=== PATIENT | male | born 1990 | race Caucasian/White ===

== ENCOUNTER 2018-01-25 00:21 | Emergency (ER) | payer BC ==
[2018-01-25 00:57] LABS: Absolute Lymphocytes (CBC) 2.6 K/uL (0.7-4.9); Absolute Monocytes 0.8 K/uL (0.1-1.3); Absolute Neutrophil 4.7 K/uL (1.8-8.0); Basophils % 0.5 % (0-1.3); Eosinophils % 2.6 % (0-4.4); Hematocrit 43.7 % (39.6-49.0); Lymphocytes % 31.1 % (15.3-44.8); MCH 29.5 pg (27.0-35.0); MCV 85.9 fL (80-100); MPV 9.2 fL (7.6-11.3); Monocytes % 9.7 % (3.3-12.3); RBC Red Blood Cell Count 5.09 M/uL (4.33-5.43)
[2018-01-25 00:58] LABS: Protime INR 1.09
[2018-01-25] MEDS ORDERED: ASPIRIN 81 MG CHEWABLE TABLET ONE (01:00)
[2018-01-25] MEDS ORDERED: NA CHLORIDE 0.9% 1,000 ML ONE (01:00)
[2018-01-25] MEDS ORDERED: FAMOTIDINE 20 MG/2 ML VIAL IV ONE (01:00)
[2018-01-25 01:15] LABS: ALT/SGPT 64 U/L (12-78); AST/SGOT 26 U/L (15-37); Albumin 4.4 g/dL (3.4-5.0); Alkaline Phosphatase 59 U/L (45-117); BUN Blood Urea Nitrogen 15 mg/dL (7-18); Bicarbonate 30 mmol/L (21-32); Bilirubin Direct 0.1 mg/dL (0-0.2); Bilirubin Total 0.5 mg/dL (0.2-1.0); Glucose Level 96 mg/dL (74-106); Lipase 124 U/L (73-393); Magnesium 2.3 mg/dL (1.8-2.4); NT PRO-BNP 5 pg/mL (<125); Potassium 4.3 mmol/L (3.5-5.1); Protein, Total 8.4 g/dL (6.4-8.2); Sodium Level 138 mmol/L (136-145); Troponin (Emerg Dept Use Only) < 0.02 ng/mL (0.0-0.045)
[2018-01-25 02:40] LABS: Barbiturates NEGATIVE (NEGATIVE); Benzodiazepines NEGATIVE (NEGATIVE); Cocaine NEGATIVE (NEGATIVE); METHAMPHETAM NEGATIVE (NEGATIVE); Methadone NEGATIVE (NEGATIVE); Opiates NEGATIVE (NEGATIVE); Phencyclidine NEGATIVE (NEGATIVE); THC Cannibis NEGATIVE (NEGATIVE)
--- NOTE | 2018-01-25 03:08 | ER ---
Nurse's Notes [facility] Name: Esequiel Vera Age: 27 yrs Sex: Male : 1990 Arrival Date: 01/25/2018 Time: 00:26 Bed 7 Private MD: Jayant Irving Diagnosis: Chest pain, unspecified Presentation: 01/25 00:35 Presenting complaint: Patient states: Pt reports he has been having chest pain for two ea days, reports pain got worse today around 5 PM. Transition of care: patient was not received from another setting of care. Onset of symptoms was January 25, 2018. Risk Assessment: Do you want to hurt yourself or someone else? Patient reports no desire to harm self or others. Initial Sepsis Screen: Does the patient meet any 2 criteria? No. Patient's initial sepsis screen is negative. Does the patient have a suspected source of infection? No. Patient's initial sepsis screen is negative. Care prior to arrival: None. 00:35 Method Of Arrival: Ambulatory ea 00:35 Acuity: GIANFRANCO 3 ea Triage Assessment: 00:45 General: Appears in no apparent distress. Behavior is calm, cooperative, appropriate ea for age. Pain: Complains of pain in anterior aspect of left upper chest Pain does not radiate. Neuro: Level of Consciousness is awake, alert, obeys commands, Oriented to person, place, time, situation. Cardiovascular: Heart tones S1 S2 present Patient's skin is warm and dry. Respiratory: Airway is patent Respiratory effort is even, unlabored, Respiratory pattern is regular, symmetrical, Breath sounds are clear bilaterally. Derm: Skin is pink, warm \T\ dry. Musculoskeletal: Circulation, motion, and sensation intact. Historical: - Allergies: 00:45 No Known Allergies; ea - Home Meds: 00:45 None [Active]; ea - PMHx: 00:45 None; ea - PSHx: 00:45 None; ea - Immunization history:: Adult Immunizations up to date. - Social history:: Smoking status: Patient/guardian denies using tobacco, Patient uses alcohol, occasionally. - Ebola Screening: : No symptoms or risks identified at this time. - Family history:: not pertinent. Screenin:00 Abuse screen: Denies threats or abuse. Nutritional screening: No deficits noted. ea Tuberculosis screening: No symptoms or risk factors identified. Fall Risk IV access (20 points). Assessment: 01:02 Reassessment: see triage assessment. ea 01:07 General: Appears in no apparent distress. comfortable, Behavior is calm, cooperative, rr5 appropriate for age. Pain: Complains of pain in anterior aspect of left upper chest Pain does not radiate. Pain currently is 7 out of 10 on a pain scale. Quality of pain is described as aching, Pain began 2-3 days ago. Is intermittent. Neuro: Level of Consciousness is awake, alert, obeys commands, Oriented to person, place, time, situation, Appropriate for age. Cardiovascular: Reports chest pain, Capillary refill < 3 seconds Patient's skin is warm and dry. Respiratory: Airway is patent Respiratory effort is even, unlabored, Respiratory pattern is regular, symmetrical. GI: Abdomen is round. : No signs and/or symptoms were reported regarding the genitourinary system. EENT: No signs and/or symptoms were reported regarding the EENT system. Derm: Skin is intact, Skin is dry, Skin is pink, warm \T\ dry. Skin temperature is warm. Musculoskeletal: Capillary refill < 3 seconds, Range of motion: intact in all extremities. 01:34 Reassessment: Patient appears in no apparent distress at this time. Patient is alert, rr5 oriented x 3, equal unlabored respirations, skin warm/dry/pink. Patient states feeling better. Patient states symptoms have improved. 02:51 Reassessment: Patient appears in no apparent distress at this time. Patient is alert, rr5 oriented x 3, equal unlabored respirations, skin warm/dry/pink. Patient states feeling better. Patient states symptoms have improved. 03:20 Reassessment: Patient appears in no apparent distress at this time. Patient is alert, rr5 oriented x 3, equal unlabored respirations, skin warm/dry/pink. repeat troponin test. no complaints made. Patient states symptoms have improved. 04:15 Reassessment: Patient appears in no apparent distress at this time. Patient is alert, rr5 oriented x 3, equal unlabored respirations, skin warm/dry/pink. dr. may informed for the 2nd troponin result and discharged the patient. Vital Signs: 00:45 BP 136 / 88; Pulse 83; Resp 18; Temp 98.6; Pulse Ox 99% ; Weight 136.08 kg; Height 6 ea ft. (182.88 cm); Pain 8/10; 01:34 BP 123 / 73; Pulse 71; Resp 16; Pulse Ox 98% on R/A; rr5 02:00 BP 131 / 88; Pulse 68; Resp 18; Pulse Ox 98% ; ea 02:50 BP 123 / 79; Pulse 60; Resp 17; Pulse Ox 99% on R/A; Pain 0/10; rr5 04:10 BP 121 / 76; Pulse 61; Resp 17; Pulse Ox 99% on R/A; Pain 0/10; rr5 00:45 Body Mass Index 40.69 (136.08 kg, 182.88 cm) ea ED Course: 00:26 Patient arrived in ED. es 00:26 Jayant Irving MD is Private Physician. es 00:31 Domenico May MD is Attending Physician. adriane 00:44 Triage completed. ea 00:50 Inserted saline lock: 20 gauge in right antecubital area, using aseptic technique. ea Blood collected. 00:57 X-ray completed. Portable x-ray completed in exam room. Patient tolerated procedure sg4 well. 01:00 Arm band placed on right wrist. Patient placed in an exam room, on a stretcher, on ea cardiac cath tech, on pulse oximetry. 01:01 XRAY Chest (1 view) In Process Unspecified. EDMS 01:01 Patient has correct armband on for positive identification. Bed in low position. Call ea light in reach. Side rails up X2. vehicle monitor technician on. NIBP on. 01:02 Patient maintains SpO2 saturation greater than 95% on room air. ea 01:14 Krzysztof Winston RN is Primary Nurse. rr5 03:07 Jayant Irving MD is Referral Physician. adriane 03:07 Jose Luis Woodard MD is Referral Physician. adriane 04:10 No provider procedures requiring assistance completed. IV discontinued, bleeding rr5 controlled, Pressure dressing applied. Administered Medications: Discontinued: NS 0.9% 1000 ml IV at 125 ml/hr continuous 00:55 Drug: Pepcid 20 mg Route: IVP; Site: right antecubital; rr5 04:10 Follow up: Response: No adverse reaction rr5 01:00 Drug: Aspirin Chewable Tablet 324 mg Route: PO; rr5 04:47 Follow up: Response: No adverse reaction rr5 01:05 Drug: NS 0.9% 1000 ml Route: IV; Rate: 125 ml/hr; Site: right antecubital; rr5 04:10 Follow up: Response: No adverse reaction; IV Status: Order to discontinue infusion; IV rr5 Intake: 500ml ; patient is discharged Intake: 04:10 IV: 500ml; Total: 500ml. rr5 Outcome: 03:08 Discharge ordered by MD. forrest 04:10 Discharged to home ambulatory. rr5 04:10 Condition: stable 04:10 Discharge instructions given to patient, Instructed on discharge instructions, follow up and referral plans. medication usage, Demonstrated understanding of instructions, follow-up care, medications, Prescriptions given X 1. 04:48 Patient left the ED. rr5 Signatures: Dispatcher [employer] Domenico Yarbrough MD MD cha Salyer, Edna es Antunez, Elena, RN RN Aida Ashford [facility] Krzysztof Winston RN RN rr5
--- NOTE | 2018-01-25 03:08 | EDPHYS ---
Physician Documentation [facility] Name: Esequiel Vera Age: 27 yrs Sex: Male : 1990 Arrival Date: 01/25/2018 Time: 00:26 Bed 7 Private MD: Jayant Irving ED Physician Domenico May HPI: 01/25 00:48 This 27 yrs old Male presents to ER via Ambulatory with complaints of Chest adriane Pain. 00:48 The patient or guardian reports chest pain that is located primarily in the substernal adriane area. The pain radiates to the left arm. Associated signs and symptoms: The patient has no apparent associated signs or symptoms. The chest pain is described as a pressure. Duration: The patient or guardian reports a single episode, that is now resolved. Severity of pain: At its worst the pain was mild in the emergency department the pain has resolved. The patient has not experienced similar symptoms in the past. Historical: - Allergies: 00:45 No Known Allergies; ea - Home Meds: 00:45 None [Active]; ea - PMHx: 00:45 None; ea - PSHx: 00:45 None; ea - Immunization history:: Adult Immunizations up to date. - Social history:: Smoking status: Patient/guardian denies using tobacco, Patient uses alcohol, occasionally. - Ebola Screening: : No symptoms or risks identified at this time. - Family history:: not pertinent. ROS: 00:49 Constitutional: Negative for fever, chills, and weight loss, Eyes: Negative for injury, adriane pain, redness, and discharge, ENT: Negative for injury, pain, and discharge, Neck: Negative for injury, pain, and swelling, Respiratory: Negative for shortness of breath, cough, wheezing, and pleuritic chest pain, Abdomen/GI: Negative for abdominal pain, nausea, vomiting, diarrhea, and constipation, Back: Negative for injury and pain, : Negative for injury, bleeding, discharge, and swelling, MS/Extremity: Negative for injury and deformity, Skin: Negative for injury, rash, and discoloration, Neuro: Negative for headache, weakness, numbness, tingling, and seizure. 00:49 Cardiovascular: Positive for Exam: 00:49 Constitutional: This is a well developed, well nourished patient who is awake, alert, adriane and in no acute distress. Head/Face: Normocephalic, atraumatic. Eyes: Pupils equal round and reactive to light, extra-ocular motions intact. Lids and lashes normal. Conjunctiva and sclera are non-icteric and not injected. Cornea within normal limits. Periorbital areas with no swelling, redness, or edema. ENT: Nares patent. No nasal discharge, no septal abnormalities noted. Tympanic membranes are normal and external auditory canals are clear. Oropharynx with no redness, swelling, or masses, exudates, or evidence of obstruction, uvula midline. Mucous membranes moist. Neck: Trachea midline, no thyromegaly or masses palpated, and no cervical lymphadenopathy. Supple, full range of motion without nuchal rigidity, or vertebral point tenderness. No Meningismus. Chest/axilla: Normal chest wall appearance and motion. Nontender with no deformity. No lesions are appreciated. Cardiovascular: Regular rate and rhythm with a normal S1 and S2. No gallops, murmurs, or rubs. Normal PMI, no JVD. No pulse deficits. Respiratory: Lungs have equal breath sounds bilaterally, clear to auscultation and percussion. No rales, rhonchi or wheezes noted. No increased work of breathing, no retractions or nasal flaring. Abdomen/GI: Soft, non-tender, with normal bowel sounds. No distension or tympany. No guarding or rebound. No evidence of tenderness throughout. Back: No spinal tenderness. No costovertebral tenderness. Full range of motion. Male : Normal genitalia with no discharge or lesions. Skin: Warm, dry with normal turgor. Normal color with no rashes, no lesions, and no evidence of cellulitis. MS/ Extremity: Pulses equal, no cyanosis. Neurovascular intact. Full, normal range of motion. Neuro: Awake and alert, GCS 15, oriented to person, place, time, and situation. Cranial nerves II-XII grossly intact. Motor strength 5/5 in all extremities. Sensory grossly intact. Cerebellar exam normal. Normal gait. Psych: Awake, alert, with orientation to person, place and time. Behavior, mood, and affect are within normal limits. 00:50 Musculoskeletal/extremity: DVT Exam: No signs of deep vein thrombosis. no pain, no adriane swelling, no tenderness, negative Homans' sign noted on exam, no appreciated bluish discoloration, no erythema, no increased warmth. Vital Signs: 00:45 BP 136 / 88; Pulse 83; Resp 18; Temp 98.6; Pulse Ox 99% ; Weight 136.08 kg; Height 6 ea ft. (182.88 cm); Pain 8/10; 01:34 BP 123 / 73; Pulse 71; Resp 16; Pulse Ox 98% on R/A; rr5 02:00 BP 131 / 88; Pulse 68; Resp 18; Pulse Ox 98% ; ea 02:50 BP 123 / 79; Pulse 60; Resp 17; Pulse Ox 99% on R/A; Pain 0/10; rr5 04:10 BP 121 / 76; Pulse 61; Resp 17; Pulse Ox 99% on R/A; Pain 0/10; rr5 00:45 Body Mass Index 40.69 (136.08 kg, 182.88 cm) ea MDM: 00:31 Patient medically screened. adriane 00:50 Data reviewed: vital signs, nurses notes, lab test result(s), EKG, radiologic studies. [facility] 01/25 00:47 Order name: Basic Metabolic Panel; Complete Time: 02:57 [facility] 01/25 00:47 Order name: CBC with Diff; Complete Time: 02:57 [facility] 01/25 00:47 Order name: LFT's; Complete Time: 02:57 [facility] 01/25 00:47 Order name: Magnesium; Complete Time: 02:57 [facility] 01/25 00:47 Order name: NT PRO-BNP; Complete Time: 02:57 [facility] 01/25 00:47 Order name: PT-INR; Complete Time: 02:57 [facility] 01/25 00:47 Order name: Troponin (emerg Dept Use Only); Complete Time: 02:57 [facility] 01/25 00:47 Order name: XRAY Chest (1 view) [facility] 01/25 00:47 Order name: Lipase; Complete Time: 02:57 adriane 01/25 00:47 Order name: UDS; Complete Time: 02:57 adriane 01/25 01:05 Order name: D-Dimer; Complete Time: 02:57 EDMS 01/25 01:58 Order name: Urine Dipstick--Ancillary (enter results) ms 01/25 03:01 Order name: Troponin (emerg Dept Use Only): now; Complete Time: 04:17 adriane 01/25 00:47 Order name: EKG; Complete Time: 00:48 [facility] 01/25 00:47 Order name: Cardiac monitoring; Complete Time: 01:06 [facility] 01/25 00:47 Order name: EKG - Nurse/Tech; Complete Time: 01:14 [facility] 01/25 00:47 Order name: IV Saline Lock; Complete Time: 01:06 [facility] 01/25 00:47 Order name: Labs collected and sent; Complete Time: 01:06 [facility] 01/25 00:47 Order name: O2 Per Protocol; Complete Time: 01:06 [facility] 01/25 00:47 Order name: O2 Sat Monitoring; Complete Time: 01:06 [facility] 01/25 00:48 Order name: EKG; Complete Time: 00:49 [facility] 01/25 00:48 Order name: EKG - Nurse/Tech; Complete Time: 01:04 [facility] Administered Medications: Discontinued: NS 0.9% 1000 ml IV at 125 ml/hr continuous 00:55 Drug: Pepcid 20 mg Route: IVP; Site: right antecubital; rr5 04:10 Follow up: Response: No adverse reaction rr5 01:00 Drug: Aspirin Chewable Tablet 324 mg Route: PO; rr5 04:47 Follow up: Response: No adverse reaction rr5 01:05 Drug: NS 0.9% 1000 ml Route: IV; Rate: 125 ml/hr; Site: right antecubital; rr5 04:10 Follow up: Response: No adverse reaction; IV Status: Order to discontinue infusion; IV rr5 Intake: 500ml ; patient is discharged Disposition: 01/25/18 03:08 Discharged to Home. Impression: Chest pain, unspecified. - Condition is Stable. - Discharge Instructions: Nonspecific Chest Pain, Chest Wall Pain, Chest Wall Pain, [id number], Nonspecific Chest Pain, Cubc-[id number]-[id number], Aspirin and Your Heart. - Prescriptions for Pepcid 20 mg Oral Tablet - take 1 tablet by ORAL route every 12 hours for 10 days; 20 tablet. - Medication Reconciliation Form, Thank You Letter, Antibiotic Education, Prescription Opioid Use form. - Follow up: Jayant Irving; When: 2 - 3 days; Reason: Recheck today's complaints, Continuance of care, Re-evaluation by your physician. Follow up: Jose Luis Woodard; When: 2 - 3 days; Reason: Recheck today's complaints, Re-evaluation by your physician. - Problem is new. - Symptoms have improved. Signatures: Dispatcher [employer] [facility] Domenico May MD MD cha Antunez, Elena, RN Krzysztof Mcghee ea, LORENZA RN rr5 Corrections: (The following items were deleted from the chart) 01:05 01:01 D-DIMER+COAG.LAB.BRZ ordered. [facility] 04:48 03:08 01/25/2018 03:08 Discharged to Home. Impression: Chest pain, unspecified. rr5 Condition is Stable. Discharge Instructions: Nonspecific Chest Pain, Chest Wall Pain, Chest Wall Pain, [id number], Nonspecific Chest Pain, [id number], Aspirin and Your Heart. Prescriptions for Pepcid 20 mg Oral Tablet - take 1 tablet by ORAL route every 12 hours for 10 days; 20 tablet. and Forms are Medication Reconciliation Form, Thank You Letter, Antibiotic Education, Prescription Opioid Use. Follow up: Jayant Irving; When: 2 - 3 days; Reason: Recheck today's complaints, Continuance of care, Re-evaluation by your physician. Follow up: Jose Luis Woodard; When: 2 - 3 days; Reason: Recheck today's complaints, Re-evaluation by your physician. Problem is new. Symptoms have improved. adriane
[2018-01-25 04:19] LABS: Urine Blood TRACE (NEG); Urine Glucose NEGATIVE (NEG); Urine Protein NEGATIVE (NEG)
--- NOTE | 2018-01-25 11:11 | RAD REPORT ---
EXAM DESCRIPTION: RAD - Chest Single View - 01/25/2018 1:01 am CLINICAL HISTORY: CHEST PAIN Chest pain. COMPARISON: No comparisons FINDINGS: Portable technique limits examination quality. The lungs are grossly clear. The heart is normal in size. No displaced fractures. IMPRESSION: No acute intrathoracic process suspected.
--- NOTE | 2018-01-26 05:52 | EKG ---
Test Date: 2018-01-25 Test Time: 00:39:29 Tree Tapping Laborer: DIANA MEASUREMENT RESULTS: Intervals: Rate: 70 CA: 132 QRSD: 94 QT: 382 QTc: 412 [place]: P: 63 CA: 132 QRS: 27 T: 23 INTERPRETIVE STATEMENTS: Normal sinus rhythm ST elevation, probably due to early repolarization Borderline ECG No previous ECG available for comparison Electronically Signed On 01-26-18 05:51:37 HIGH WORKER by Terence Parnell
--- NOTE | 2018-01-26 05:52 | EKG ---
Test Date: 2018-01-25 Test Time: 00:52:34 Machine Shop Worker: DIANA MEASUREMENT RESULTS: Intervals: Rate: 66 NE: 132 QRSD: 96 QT: 384 QTc: 402 [place]: P: -7 NE: 132 QRS: 28 T: 26 INTERPRETIVE STATEMENTS: Normal sinus rhythm Early repolarization Normal ECG Compared to ECG 01/25/2018 00:39:29 ST (T wave) deviation no longer present Electronically Signed On 01-26-18 05:51:34 PLASTIC MANAGER by Terence Parnell
== END 2018-01-25 04:48 | disposition home or self-care (01) ==
LOC: ER 00:21
DX: R07.9 Chest pain, unspecified (principal)
CPT/HCPCS: 36415; 71045; 80048; 80076; 80307; 81003; 83690; 83735; 83880; 84484; 85025; 85379; 85610; 93005; 96361; 96374; 99285; J7030

== ENCOUNTER 2024-03-14 05:16 | Emergency (ER) | payer BC ==
[2024-03-14] MEDS ORDERED: NA CHLORIDE 0.9% 1,000 ML ONE (05:40)
[2024-03-14 05:59] LABS: Absolute Basophils 0.1 K/uL (0-0.5); Absolute Eosinophils 0.1 K/uL (0-0.5); Absolute Lymphocytes (CBC) 3.7 K/uL (0.7-4.9); Basophils % 0.5 % (0-1.3); Eosinophils % 1.3 % (0-4.4); Hematocrit 46.1 % (39.6-49.0); Hemoglobin 15.3 g/dL (13.6-17.9); Lymphocytes % 31.1 % (15.3-44.8); MCH 28.7 pg (27.0-35.0); MCHC 33.3 g/dL (32.0-36.0); MCV 86.4 fL (80-100); MPV 8.5 fL (7.6-11.3); Monocytes % 8.1 % (3.3-12.3); Nucleated Red Blood Cells % 0.2 % (0-0); Platelets 295 thou/uL (152-406); RBC Red Blood Cell Count 5.34 M/uL (4.33-5.43); Red Cell Distribution Width 13.2 % (12.1-15.2)
[2024-03-14 06:07] LABS: SARS-CoV-2 Antigen CONTROL BLUE LINE VIS/BG OK; SARS-CoV-2 Antigen Rapid Res Negative (Negative)
[2024-03-14 06:19] LABS: ALT/SGPT 44 U/L (16-61); AST/SGOT 27 U/L (15-37); Albumin 4.1 g/dL (3.4-5.0); Alkaline Phosphatase 46 U/L (45-117); Anion Gap 10.1 mEq/L (5.0-15.0); BUN Blood Urea Nitrogen 16 mg/dL (7-18); Bicarbonate 27 mEq/L (21-32); Bilirubin Total 0.3 mg/dL (0.2-1.0); Globulin 4.2 g/dL (2.3-3.5); Glomerular Filtration Rate 101 ml/min (=/>90); Glucose Level 117 mg/dL (74-106); Magnesium 2.3 mg/dL (1.6-2.4); NT PRO-BNP 12 pg/mL (<125); Potassium 4.1 mEq/L (3.5-5.1); Protein, Total 8.3 g/dL (6.4-8.2); Sodium Level 136 mEq/L (136-145)
[2024-03-14 06:34] LABS: Bilirubin Direct < 0.2 mg/dL (0-0.2); Bilirubin Indirect, Calculated 0.1 mg/dL (0.2-0.8); Troponin High Sensitivity < 3.0 pg/mL (<58.9)
[2024-03-14 06:34] LABS: Barbiturates NEGATIVE (NEGATIVE); Benzodiazepines NEGATIVE (NEGATIVE); Cocaine NEGATIVE (NEGATIVE); METHAMPHETAM NEGATIVE (NEGATIVE); Methadone NEGATIVE (NEGATIVE); Opiates NEGATIVE (NEGATIVE); Phencyclidine NEGATIVE (NEGATIVE); THC Cannibis NEGATIVE (NEGATIVE)
--- NOTE | 2024-03-14 06:46 | EDPHYS ---
Physician Documentation [facility] Name: Esequiel Vera Age: 33 yrs Sex: Male : 1990 Arrival Date: 03/14/2024 Time: 05:16 Bed DX3 Private MD: ED Physician Darion Boss HPI: 03/14 05:22 This 33 yrs old Male presents to ER via Unassigned with complaints of Chest sp4 Tightness, Palpitations. 07:02 Patient woke up in the middle of the night with heartburn. Has history of atrial sp4 fibrillation. Presents for evaluation for suspected arrhythmia. Denied palpitations. Home medications include metoprolol 50 mg daily and lisinopril. History of mitral valve prolapse. 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 Arteaga in [place]. Historical: - Allergies: 05:32 No Known Allergies; lg3 - Home Meds: 05:32 lisinopril 5 mg Oral tablet [Active]; Metoprolol Tartrate Oral [Active]; lg3 - PMHx: 05:32 Hypertensive disorder; Atrial fibrillation; lg3 - PSHx: 05:32 None; lg3 - Immunization history:: Adult Immunizations up to date. - Infectious Disease History:: Denies. - Social history:: Smoking status: Patient denies any tobacco usage or history of. Patient uses alcohol, weekly. Patient/guardian denies using street drugs. - Family history:: not pertinent. ROS: 07:02 Constitutional: Negative for fever, chills, and weight loss, positive for heartburn sp4 07:02 All other systems are negative, Exam: 07:02 Constitutional: This is a well developed, well nourished patient who is awake, alert, sp4 and in no acute distress. Head/Face: Normocephalic, atraumatic. Eyes: Pupils equal round and reactive to light, extra-ocular motions intact. Lids and lashes normal. Conjunctiva and sclera are not injected. Cornea within normal limits. Periorbital areas with no swelling, redness, or edema. ENT: Nares patent. No nasal discharge, no septal abnormalities noted. Tympanic membranes are normal and external auditory canals are clear. Oropharynx with no redness, swelling, or masses, exudates, or evidence of obstruction, uvula midline. Mucous membranes moist. Neck: Trachea midline, no thyromegaly or masses palpated, and no cervical lymphadenopathy. Supple, full range of motion without nuchal rigidity, or vertebral point tenderness. Chest/axilla: Normal chest wall appearance and motion. Nontender with no deformity. No lesions are appreciated. Cardiovascular: Regular rate and rhythm with a normal S1 and S2. No gallops, murmurs, or rubs. Normal PMI, no JVD. No pulse deficits. Respiratory: Lungs have equal breath sounds bilaterally, clear to auscultation and percussion. No rales, rhonchi or wheezes noted. No increased work of breathing, no retractions or nasal flaring. Abdomen/GI: Soft, with normal bowel sounds. No distension or tympany. No guarding or rebound. No evidence of tenderness throughout. Back: No spinal tenderness. No costovertebral tenderness. Skin: Warm, dry with normal turgor. Normal color with no rashes, no lesions, and no evidence of cellulitis. MS/ Extremity: Pulses equal, no cyanosis. Neurovascular intact. Full, normal range of motion. Neuro: Awake and alert, GCS 15, oriented to person, place, time, and situation. Cranial nerves II-XII grossly intact. Motor strength 5/5 in all extremities. Sensory grossly intact. Psych: Awake, alert, with orientation to person, place and time. Behavior, mood, and affect are within normal limits 07:02 ECG was reviewed by the Attending Physician. EKG at 0 531 sinus tachycardia rate 106 otherwise normal. Vital Signs: 05:30 BP 149 / 91; Pulse 110; Resp 18 S; Temp 98.1(O); Pulse Ox 98% on R/A; Weight 136.08 kg lg3 (R); Height 6 ft. 0 in. (R); 06:46 BP 139 / 88; Pulse 99; Resp 18 S; Pulse Ox 99% on R/A; lg3 05:30 Body Mass Index 40.69 (136.08 kg, 182.88 cm) lg3 [employer] Coma Score: 07:02 Eye Response: spontaneous(4). Motor Response: obeys commands(6). Verbal Response: sp4 oriented(5). Total: 15. MDM: 05:23 Medical Screening Exam initiated sp4 05:31 Differential diagnosis: acute pericarditis, anxiety, chest wall pain, esophagitis, sp4 gastritis. HEART Score: History: Slightly Suspicious (0), ECG: Normal (0), Age: < or = 45 years (0), Risk Factors: 1 or 2 risk factors (1), Troponin: < or = 1 x Normal Limit (0), Total Score = 1. Data reviewed: vital signs, nurses notes, lab test result(s), EKG, radiologic studies, plain films. ED course: Workup today is unremarkable. EKG was repeated at 0 632 revealing normal sinus rhythm at rate of 99. Patient stable for discharge home. Advised follow-up with [facility] as scheduled.. 03/14 05:22 Order name: Basic Metabolic Panel; Complete Time: 06:38 sp4 03/14 05:22 Order name: CBC with Diff; Complete Time: 06:20 sp4 03/14 05:22 Order name: LFT's; Complete Time: 06:38 sp4 03/14 05:22 Order name: Magnesium; Complete Time: 06:38 sp4 03/14 05:22 Order name: NT PRO-BNP; Complete Time: 06:38 sp4 03/14 05:22 Order name: Troponin HS; Complete Time: 06:38 sp03/14 05:35 Order name: SARS RAPID; Complete Time: 06:20 sp4 03/14 05:35 Order name: Influenza Screen (a \T\ B); Complete Time: 06:20 sp4 03/14 05:42 Order name: Urine Drug Screen; Complete Time: 06:38 sp4 03/14 05:22 Order name: XRAY Chest (1 view) 4 03/14 06:20 Order name: EKG; Complete Time: 06:21 sp4 03/14 05:22 Order name: EKG - Nurse/Tech; Complete Time: 05:44 sp4 03/14 05:22 Order name: IV Saline Lock; Complete Time: 05:44 sp4 03/14 05:22 Order name: Labs collected and sent; Complete Time: 05:44 sp03/14 05:22 Order name: O2 Per Protocol; Complete Time: 05:44 sp03/14 05:22 Order name: O2 Sat Monitoring; Complete Time: 05:44 4 EC:31 Rate is 106 beats/min. Rhythm is regular, Sinus tachycardia. QRS [place] is Normal. [place] sp4 interval is normal. QRS interval is normal. QT interval is normal. No Q waves. T waves are Normal. No ST changes noted. Clinical impression: No evidence of ischemia. Interpreted by me. Reviewed by me. Administered Medications: 05:43 Drug: NS 0.9% IV 1000 ml IV at 1000 ml once; to be given as a bolus over 60 minutes lg3 Route: IV; Rate: 1000 ml; Site: left antecubital; 06:46 Follow up: Response: No adverse reaction; IV Status: Completed infusion; IV Intake: lg3 1000ml Disposition: 07:05 Chart complete. sp4 Disposition Summary: 03/14/24 06:45 Discharge Ordered Problem: new sp4 Symptoms: have improved sp4 Condition: Stable sp4 Diagnosis - Heartburn sp4 - Encounter for evaluation for arrhythmia , History of Atrial Fibrillation sp4 Followup: sp4 - With: Fredi Arteaga MD - When: 10 - 14 days - Reason: Recheck today's complaints Discharge Instructions: - Discharge Summary Sheet sp4 - Heartburn, [id number] sp4 Forms: - Patient Portal Instructions sp4 Signatures: Dispatcher [employer] Slime Esparza RN RN lg3 Darion Boss MD MD sp4 Corrections: (The following items were deleted from the chart) 06:45 05:22 Cardiac monitoring ordered. sp4 lg3
--- NOTE | 2024-03-14 06:46 | ER ---
Nurse's Notes [facility] Name: Esequiel Vera Age: 33 yrs Sex: Male : 1990 Arrival Date: 03/14/2024 Time: 05:16 Bed DX3 Private MD: Diagnosis: Heartburn;Encounter for evaluation for arrhythmia , History of Atrial Fibrillation Presentation: 03/14 05:30 Chief complaint: Patient states: chest tightness with heartburn X1 hr. Coronavirus lg3 screen: Client denies travel out of the [place] in the last 14 days. At this time, the client does not indicate any symptoms associated with coronavirus-19. Ebola Screen: No symptoms or risks identified at this time. Initial Sepsis Screen: Does the patient meet any 2 criteria? No. Patient's initial sepsis screen is negative. Does the patient have a suspected source of infection? No. Patient's initial sepsis screen is negative. Risk Assessment: Do you want to hurt yourself or someone else? Patient reports no desire to harm self or others. Onset of symptoms was March 14, 2024. 05:30 Method Of Arrival: Ambulatory lg3 05:30 Acuity: GIANFRANCO 3 lg3 Triage Assessment: 05:32 General: Appears in no apparent distress. comfortable, Behavior is calm, cooperative. lg3 Pain: Complains of pain in chest Pain currently is 3 out of 10 on a pain scale. Quality of pain is described as pressure. EENT: No deficits noted. No signs and/or symptoms were reported regarding the EENT system. Neuro: No deficits noted. Schmitz Agitation-Sedation Scale (RASS): 0 - Alert and Calm Level of Consciousness is awake, alert, obeys commands, Oriented to person, place, time, situation. Cardiovascular: Reports fatigue, palpitations, Heart tones S1 S2 present Capillary refill < 3 seconds Clubbing of nail beds is absent JVD is absent Patient's skin is warm and dry. Rhythm is sinus tachycardia Chest pain quality is heaviness, indigestion. Respiratory: No deficits noted. Airway is patent Respiratory effort is even, unlabored, Respiratory pattern is regular, symmetrical. GI: No deficits noted. Abdomen is round non-distended. : No signs and/or symptoms were reported regarding the genitourinary system. Derm: No deficits noted. No signs and/or symptoms reported regarding the dermatologic system. Skin is intact, is healthy with good turgor, Skin is dry, Skin is normal, Skin temperature is warm. Musculoskeletal: No deficits noted. No signs and/or symptoms reported regarding the musculoskeletal system. Circulation, motion, and sensation intact. Range of motion: intact in all extremities. Historical: - Allergies: 05:32 No Known Allergies; lg3 - Home Meds: 05:32 lisinopril 5 mg Oral tablet [Active]; Metoprolol Tartrate Oral [Active]; lg3 - PMHx: 05:32 Hypertensive disorder; Atrial fibrillation; lg3 - PSHx: 05:32 None; lg3 - Immunization history:: Adult Immunizations up to date. - Infectious Disease History:: Denies. - Social history:: Smoking status: Patient denies any tobacco usage or history of. Patient uses alcohol, weekly. Patient/guardian denies using street drugs. - Family history:: not pertinent. Screenin:36 [facility] ED Fall Risk Assessment (Adult) History of falling in the last 3 months, lg3 including since admission No falls in past 3 months (0 pts) Confusion or Disorientation No (0 pts) Intoxicated or Sedated No (0 pts) Impaired Gait No (0 pts) Mobility Assist Device Used No (0 pt) Altered Elimination No (0 pt) Score/Fall Risk Level 0 - 2 = Low Risk Oriented to surroundings, Maintained a safe environment, Educated pt \T\ family on fall prevention, incl call for assistance when getting out of bed, Assessed \T\ reinforced patient's understanding of fall precautions. Abuse screen: Denies threats or abuse. Denies injuries from another. Nutritional screening: No deficits noted. Tuberculosis screening: No symptoms or risk factors identified. Assessment: 05:36 General: see triage assessment. lg3 06:45 Reassessment: Patient appears in no apparent distress at this time. No changes from lg3 previously documented assessment. Patient and/or family updated on plan of care and expected duration. Pain level reassessed. Patient is alert, oriented x 3, equal unlabored respirations, skin warm/dry/pink. Vital Signs: 05:30 BP 149 / 91; Pulse 110; Resp 18 S; Temp 98.1(O); Pulse Ox 98% on R/A; Weight 136.08 kg lg3 (R); Height 6 ft. 0 in. (R); 06:46 BP 139 / 88; Pulse 99; Resp 18 S; Pulse Ox 99% on R/A; lg3 05:30 Body Mass Index 40.69 (136.08 kg, 182.88 cm) lg3 [employer] Coma Score: 07:02 Eye Response: spontaneous(4). Motor Response: obeys commands(6). Verbal Response: sp4 oriented(5). Total: 15. ED Course: 05:21 Patient arrived in ED. gm2 05:22 Darion Boss MD is Attending Physician. sp4 05:31 Triage completed. lg3 05:32 Arm band placed on right wrist. lg3 05:36 Patient has correct armband on for positive identification. Family accompanied patient. lg3 05:36 EKG done, by ED staff, reviewed by Darion Boss MD. Patient maintains SpO2 lg3 saturation greater than 95% on room air. 05:43 Initial lab(s) drawn, by ED staff, sent to lab. COVID swab sent to lab. Flu and/or RSV lg3 swab sent to lab. Inserted saline lock: 20 gauge in left antecubital area, using aseptic technique. Blood collected. 05:43 Influenza Screen (a \T\ B) Sent. lg3 05:43 SARS RAPID Sent. lg3 05:44 Basic Metabolic Panel Sent. lg3 05:44 CBC with Diff Sent. lg3 05:44 LFT's Sent. lg3 05:44 Magnesium Sent. lg3 05:44 NT PRO-BNP Sent. lg3 05:44 Troponin HS Sent. lg3 06:10 Urine Drug Screen Sent. lg3 06:10 Urine collected: clean catch specimen, clear. lg3 06:18 XRAY Chest (1 view) In Process Unspecified. EDMS 06:44 Fredi Arteaga MD is Referral Physician. sp4 06:50 No provider procedures requiring assistance completed. IV discontinued, intact, lg3 bleeding controlled, No redness/swelling at site. Pressure dressing applied. Administered Medications: 05:43 Drug: NS 0.9% IV 1000 ml IV at 1000 ml once; to be given as a bolus over 60 minutes lg3 Route: IV; Rate: 1000 ml; Site: left antecubital; 06:46 Follow up: Response: No adverse reaction; IV Status: Completed infusion; IV Intake: lg3 1000ml Medication: 06:46 VIS not applicable for this client. lg3 Intake: 06:46 IV: 1000ml; Total: 1000ml. lg3 Outcome: 06:45 Discharge ordered by . sp4 06:50 Discharged to home ambulatory, lg3 06:50 Condition: stable 06:50 Discharge instructions given to patient, Instructed on discharge instructions, follow up and referral plans. Demonstrated understanding of instructions, follow-up care, 06:50 Patient left the ED. lg3 Signatures: Dispatcher [employer] EDMS Slime Dahl RN RN lg3 Darion Boss MD MD sp4 Jessica Benítez gm2
[2024-03-14 07:21] VITALS: TEMP 98.1
[2024-03-14 07:23] VITALS: BP 139/88; O2SAT 99
--- NOTE | 2024-03-14 09:38 | RAD REPORT ---
EXAMINATION: Chest Single View CLINICAL HISTORY: CHEST PAIN COMPARISON: None FINDINGS: The lungs are clear. There is no pleural effusion or pneumothorax. The cardiomediastinal silhouette i s without acute process. The osseous structures are without acute process. IMPRESSION: No acute process. RECOMMENDATIONS: Electronically signed by: James Boone MD 03/14/2024 08:40 AM [facility] Due to temporary technical issues with the PACS/[employer] reporting system, reports are being camille d by the in-house radiologist without review as a courtesy to ensure prompt reporting. The interpreting radiologist is fully responsible for the content of the report. Transcribed Date/Time: 03/14/2024 9:37 AM
--- NOTE | 2024-03-23 11:18 | EKG ---
Test Date: 2024-03-14 Test Time: 05:31:03 Auto Body Customizer: KERRIE MEASUREMENT RESULTS: Intervals: Rate: 106 [place]: 146 QRSD: 92 QT: 338 QTc: 448 [place]: P: 41 [place]: 146 QRS: 41 T: 63 INTERPRETIVE STATEMENTS: Sinus tachycardia Nonspecific ST abnormality Abnormal ECG Compared to ECG 01/25/2018 00:52:34 ST (T wave) deviation now present Sinus rhythm no longer present Early repolarization no longer present Electronically Signed On 03-23-24 11:04:57 CUSTOM FEED MILL OPERATOR by Bar Bond
--- NOTE | 2024-03-23 11:18 | EKG ---
Test Date: 2024-03-14 Test Time: 06:32:23 Computer Security Specialist: KERRIE MEASUREMENT RESULTS: Intervals: Rate: 99 NC: 138 QRSD: 88 QT: 346 QTc: 444 [place]: P: 40 NC: 138 QRS: 51 T: 64 INTERPRETIVE STATEMENTS: Normal sinus rhythm Normal ECG Compared to ECG 03/14/2024 05:31:03 Sinus tachycardia no longer present ST (T wave) deviation no longer present Electronically Signed On 03-23-24 11:04:55 ACCOUNTS SUPERVISOR by Bar Bond
== END 2024-03-14 06:50 | disposition home or self-care (01) ==
LOC: ER 05:16
DX: I49.9 Cardiac arrhythmia, unspecified (principal); I48.91 Unspecified atrial fibrillation; I10 Essential (primary) hypertension; Z11.52 Encounter for screening for COVID-19
CPT/HCPCS: 93005 ×2; 85025; 80048; 36415; 83735; 80076; 84484; 83880; 80307; 87804 ×2; 71045; 96360; 99284; 87811; J7030